=== PATIENT | female | born 1985 | race Caucasian/White ===

== ENCOUNTER 2019-03-30 17:50 | Emergency (ER) | payer BC, SELFPAY ==
--- NOTE | 2019-03-30 19:19 | ER ---
Nurse's Notes [facility] Name: Shirin Salcedo Age: 33 yrs Sex: Female : 1985 Arrival Date: 03/30/2019 Time: 17:53 Bed 27 Private MD: Diagnosis: Influenza due to identified novel influenza A virus Presentation: 03/30 18:08 Presenting complaint: Patient states: sore throat, cough with blood tinged sputum, sv headache, body aches, chills x 1 day. Transition of care: patient was not received from another setting of care. Onset of symptoms was March 30, 2019. Risk Assessment: Do you want to hurt yourself or someone else? Patient reports no desire to harm self or others. Care prior to arrival: None. 18:08 Method Of Arrival: Ambulatory sv 18:08 Acuity: AZUCENA 3 sv 19:12 Initial Sepsis Screen: Does the patient meet any 2 criteria? No. Patient's initial rv sepsis screen is negative. Does the patient have a suspected source of infection? No. Patient's initial sepsis screen is negative. Historical: - Allergies: 18:10 No Known Allergies; sv - PMHx: 18:10 None; sv - PSHx: 18:10 Breast augmentation; sv - Immunization history:: Flu vaccine is not up to date. - Social history:: Smoking status: Patient/guardian denies using tobacco. - Ebola Screening: : No symptoms or risks identified at this time. Screenin:11 Abuse screen: Denies threats or abuse. Denies injuries from another. Nutritional rv screening: No deficits noted. Tuberculosis screening: No symptoms or risk factors identified. Fall Risk None identified. Assessment: 19:11 General: Appears in no apparent distress. comfortable, Behavior is calm, cooperative. rv Pain: Denies pain. Neuro: Level of Consciousness is awake, alert, obeys commands, Oriented to person, place, time, situation. Respiratory: Airway is patent. Vital Signs: 18:10 BP 117 / 64; Pulse 93; Resp 18; Temp 99.5; Pulse Ox 98% ; Weight 65.77 kg; Height 5 ft. sv 6 in. (167.64 cm); Pain 0/10; 19:48 BP 121 / 66; Pulse 89; Resp 18; Pulse Ox 99% on R/A; rv 18:10 Body Mass Index 23.40 (65.77 kg, 167.64 cm) sv ED Course: 17:53 Patient arrived in ED. as 18:09 Triage completed. sv 18:10 Arm band placed on. sv 18:34 Siva Vidal, AYAKA is Primary Nurse. rv 18:35 Pedrito Forman NP is PHCP. pm1 18:35 Jonnie Pantoja MD is Attending Physician. pm1 19:12 No provider procedures requiring assistance completed. Patient did not have IV access rv during this emergency room visit. 19:48 Patient has correct armband on for positive identification. Call light in reach. rv Administered Medications: No medications were administered Outcome: 19:18 Discharge ordered by MD. pm1 19:47 Discharged to home ambulatory. rv 19:47 Condition: good 19:47 Discharge instructions given to patient, Instructed on discharge instructions, follow up and referral plans. medication usage, Demonstrated understanding of instructions, follow-up care, medications, Prescriptions given X 1. 19:48 Patient left the ED. rv Signatures: Minnie Velasquez RN RN Camelia Lang Patrick, NP TECHNICAL SALES SPECIALIST pm1 Siva Vidal RN RN rv
--- NOTE | 2019-03-30 19:19 | EDPHYS ---
Physician Documentation [facility] Name: Shirin Salcedo Age: 33 yrs Sex: Female : 1985 Arrival Date: 03/30/2019 Time: 17:53 Bed 27 Private MD: ED Physician Jonnie Pantoja HPI: 03/30 18:35 This 33 yrs old Female presents to ER via Ambulatory with complaints of Flu pm1 Symptoms. 18:35 The patient or guardian reports flu symptoms. Onset: The symptoms/episode pm1 began/occurred today. Severity of symptoms: in the emergency department the symptoms are actually worse. Modifying factors: The symptoms are alleviated by the symptoms are aggravated by nothing. Associated signs and symptoms: Pertinent negatives: chest pain, ear ache, fever, vomiting. Presenting to ER with sister and nephew that have flu-like symptoms. Historical: - Allergies: 18:10 No Known Allergies; sv - PMHx: 18:10 None; sv - PSHx: 18:10 Breast augmentation; sv - Immunization history:: Flu vaccine is not up to date. - Social history:: Smoking status: Patient/guardian denies using tobacco. - Ebola Screening: : No symptoms or risks identified at this time. ROS: 18:35 Eyes: Negative for injury, pain, redness, and discharge. pm1 18:35 Neck: Negative for injury, pain, and swelling, Cardiovascular: Negative for chest pain, palpitations, and edema. 18:35 Abdomen/GI: Negative for abdominal pain, nausea, vomiting, diarrhea, and constipation, Back: Negative for injury and pain, : Negative for injury, bleeding, discharge, and swelling, MS/Extremity: Negative for injury and deformity, Skin: Negative for injury, rash, and discoloration, Neuro: Negative for headache, weakness, numbness, tingling, and seizure. 18:35 Constitutional: Positive for body aches, Negative for poor PO intake. 18:35 ENT: Positive for rhinorrhea, sore throat, Negative for ear pain. 18:35 Respiratory: Positive for cough, Negative for shortness of breath, sputum production, wheezing. Exam: 18:35 Constitutional: This is a well developed, well nourished patient who is awake, alert, pm1 and in no acute distress. Head/Face: Normocephalic, atraumatic. Eyes: Pupils equal round and reactive to light, extra-ocular motions intact. Lids and lashes normal. Conjunctiva and sclera are non-icteric and not injected. Cornea within normal limits. Periorbital areas with no swelling, redness, or edema. ENT: Nares patent. No nasal discharge, no septal abnormalities noted. Tympanic membranes are normal and external auditory canals are clear. Oropharynx with no redness, swelling, or masses, exudates, or evidence of obstruction, uvula midline. Mucous membranes moist. Neck: Trachea midline, no thyromegaly or masses palpated, and no cervical lymphadenopathy. Supple, full range of motion without nuchal rigidity, or vertebral point tenderness. No Meningismus. Chest/axilla: Normal chest wall appearance and motion. Nontender with no deformity. No lesions are appreciated. Cardiovascular: Regular rate and rhythm with a normal S1 and S2. No gallops, murmurs, or rubs. Normal PMI, no JVD. No pulse deficits. Respiratory: Lungs have equal breath sounds bilaterally, clear to auscultation and percussion. No rales, rhonchi or wheezes noted. No increased work of breathing, no retractions or nasal flaring. Abdomen/GI: Soft, non-tender, with normal bowel sounds. No distension or tympany. No guarding or rebound. No evidence of tenderness throughout. Back: No spinal tenderness. No costovertebral tenderness. Full range of motion. Skin: Warm, dry with normal turgor. Normal color with no rashes, no lesions, and no evidence of cellulitis. MS/ Extremity: Pulses equal, no cyanosis. Neurovascular intact. Full, normal range of motion. 18:35 Neuro: Orientation: is normal, Motor: is normal, moves all fours, Gait: is steady, at a normal pace, without difficulty. Vital Signs: 18:10 BP 117 / 64; Pulse 93; Resp 18; Temp 99.5; Pulse Ox 98% ; Weight 65.77 kg; Height 5 ft. sv 6 in. (167.64 cm); Pain 0/10; 19:48 BP 121 / 66; Pulse 89; Resp 18; Pulse Ox 99% on R/A; rv 18:10 Body Mass Index 23.40 (65.77 kg, 167.64 cm) sv MDM: 18:51 Patient medically screened. pm1 19:09 Data reviewed: vital signs. Data interpreted: Pulse oximetry: on room air is 98 %. pm1 Interpretation: normal. Counseling: I had a detailed discussion with the patient and/or guardian regarding: the historical points, exam findings, and any diagnostic results supporting the discharge/admit diagnosis, lab results, the need for outpatient follow up, to return to the emergency department if symptoms worsen or persist or if there are any questions or concerns that arise at home. 03/30 18:35 Order name: Flu; Complete Time: 19:09 rv 03/30 18:35 Order name: Strep; Complete Time: 19:09 rv 03/30 19:07 Order name: Throat Culture EDMS Administered Medications: No medications were administered Disposition: 03/30/19 19:18 Discharged to Home. Impression: Influenza due to identified novel influenza A virus. - Condition is Stable. - Discharge Instructions: Influenza, Adult. - Prescriptions for Tamiflu 75 mg Oral Capsule - take 1 tablet by ORAL route every 12 hours for 5 days; 10 tablet. - Work release form, Medication Reconciliation Form, Thank You Letter, Antibiotic Education, Prescription Opioid Use form. - Follow up: Emergency Department; When: As needed; Reason: Worsening of condition. Follow up: Private Physician; When: 2 - 3 days; Reason: Recheck today's complaints, Continuance of care, Re-evaluation by your physician. - Problem is new. - Symptoms have improved. Addendum: 04/01/2019 07:57 Co-signature as Attending Physician, Jonnie Pantoja MD I agree with the assessment and k dr plan of care. Signatures: Dispatcher [employer] EDND Minnie Velasquez RN RN Jonnie Pantoja MD MD [facility] Pedrito Forman NP RADIATION PROTECTION ENGINEER pm1 Siva Vidal RN RN rv Corrections: (The following items were deleted from the chart) 03/30 19:48 19:18 03/30/2019 19:18 Discharged to Home. Impression: Influenza due to identified rv novel influenza A virus. Condition is Stable. Forms are Medication Reconciliation Form, Thank You Letter, Antibiotic Education, Prescription Opioid Use. Follow up: Emergency Department; When: As needed; Reason: Worsening of condition. Follow up: Private Physician; When: 2 - 3 days; Reason: Recheck today's complaints, Continuance of care, Re-evaluation by your physician. Problem is new. Symptoms have improved. pm1
[2019-03-30 23:32] VITALS: TEMP 99.5
[2019-03-30 23:33] VITALS: BP 121/66; O2SAT 99
== END 2019-03-30 19:48 | disposition home or self-care (01) ==
LOC: ER 17:50
DX: J10.1 Influenza due to other identified influenza virus with other respiratory manifestations (principal); Z98.82 Breast implant status
CPT/HCPCS: 87070; 87081; 87804; 99282